=== PATIENT | female | born 1965 | race Caucasian/White ===

== ENCOUNTER 2022-04-05 19:33 | Inpatient (IN) | payer OTHER, SELFPAY ==
--- NOTE | ~2022-04-05 | US_ITS ---
EXAMINATION: US renal BI DATE: 04/06/2022 17:13 INDICATION: Acute renal insufficiency. Nonobstructing renal stone. TECHNIQUE: Multiple ultrasound grayscale images of the kidneys were obtained. COMPARISON: CT abdomen and pelvis dated 04/06/2022 FINDINGS: The right kidney measures 12.1 x 7.1 x 6.2 cm. The left kidney measures 11.9 x 5.4 x 6.2 cm. Retained lobulations of both kidneys with normal echogenicity. 3 mm nonobstructing stone at the mid rig ht kidney. There is no hydronephrosis in either kidney. Review of prior CT suggests a potentially co mplex cystic lesion at the upper pole of the right kidney which is not clearly visualized on the prov ided images. The bladder is normal. IMPRESSION: 1. 3 mm nonobstructing right renal stone with no hydronephrosis. 2. Subtle complex cystic-appearing lesion suggestive of both the right kidney on prior CT but not def initively identified on the current study. Would recommend further evaluation with pre and postcontra st MRI or CT. Reviewed, dictated and finalized at location A. GEMENT SERVICES TECHNICIAN IMPRESSION: 1. 3 mm nonobstructing right renal stone with no hydronephrosis. 2. Subtle complex cystic-appearing lesion suggestive of both the right kidney o n prior CT but not definitively identified on the current study. Would recommen d further evaluation with pre and postcontrast MRI or CT.
--- NOTE | ~2022-04-05 | CT_ITS ---
Non-contrast CT scan of the Abdomen and Pelvis Clinical indication: Abdominal pain Technique: 5 mm axial scans were obtained through the abdomen and pelvis without intravenous or oral contrast. Dose reduction technique was used on this scan by utilizing automated exposure control and iterative reconstruction technique. The dose-length product (DLP) was 1010.00 mGy-cm. Findings: Images through the lung bases reveal no abnormalities. Single small nonobstructing right renal stone noted. Left kidney unremarkable. No ureteral stone or h ydronephrosis on either side. The liver, spleen, pancreas, and adrenals appear normal. Cholecystectomy clips are present. There is no aortic aneurysm. There is no evidence of bowel obstruction. Images through the pelvis were performed. There is no evidence of ascites or lymphadenopathy. Urinary bladder unremarkable. Patient is post hysterectomy. No pelvic mass seen. Impression: 2 mm nonobstructing right renal stone. No other significant findings. Reviewed, dictated and finalized at [facility]. ULSION ENGINEER Impression: 2 mm nonobstructing right renal stone. No other significant findings.
--- NOTE | ~2022-04-05 | XR_ITS ---
Clinical Indication: Sepsis PA and lateral views of the chest: Comparison: None Findings: The lungs are clear, without evidence of focal consolidation or pleural effusion. Cardiome diastinal silhouette is within normal limits. Bones and soft tissues are unremarkable. Impression: Normal chest. Reviewed, dictated and finalized at [facility]. PHERE PORTAL ARCHITECT Impression: Normal chest.
[2022-04-05 19:35] VITALS: BP 125/77; PULSE 93; RESP 20; TEMP 36.8; O2SAT 100
[2022-04-06] VITALS (25 sets, daily range): BP systolic 97–172; BP diastolic 50–94; PULSE 84–96; RESP 9–21; TEMP 36.1–36.7; O2SAT 86–100; BMI 33.0
--- NOTE | 2022-04-06 00:44 | ED.ABDPAIN ---
HPI - Abdominal Pain General Chief Complaint: Abdominal Pain <Coco Lyon PA-C - Last Filed: 04/06/22 13:25> Stated Complaint: abd pain <Coco Lyon PA-C - Last Filed: 04/06/22 13:25> Time Seen by Provider: 04/06/22 00:37 <Coco Lyon PA-C - Last Filed: 04/06/22 13:25> History of Present Illness HPI narrative: 56-year-old female with a history of diabetes, cholecystitis s/p cholecystectomy here via EMS for evaluation of abdominal pain over the past week. He is in nature, not located in 1 specific spot. Describes it as sharp and cramping. patient states that the pain has made it so she has been unable to eat for the past week. Reports nausea but no vomiting. No diarrhea or constipation, fevers or chills, new or suspicious foods. She states a similar episode happened back in January for which she saw her primary care doctor, has not had images or labs done but did state that resolved without intervention at that time. This week's episode is worse. She is from out of town. <Coco Lyon PA-C - Last Filed: 04/06/22 13:25> Related Data Home Medications: Home Medications Medication Instructions Recorded Confirmed amlodipine 10 mg tablet 10 mg PO DAILY 04/06/22 04/06/22 atorvastatin 10 mg tablet 10 mg PO DAILY 04/06/22 04/06/22 benztropine 0.5 mg tablet 0.5 mg PO DAILY 04/06/22 04/06/22 duloxetine 60 mg capsule,delayed 120 mg PO DAILY 04/06/22 04/06/22 release (Cymbalta) empagliflozin 25 mg tablet 25 mg PO DAILY 04/06/22 04/06/22 (Jardiance) ezetimibe 10 mg tablet 10 mg PO DAILY 04/06/22 04/06/22 glipizide 5 mg tablet 5 mg PO DAILY 04/06/22 04/06/22 hydrochlorothiazide 12.5 mg capsule 12.5 mg PO DAILY 04/06/22 04/06/22 hydroxyzine HCl 50 mg tablet 50 mg PO QID PRN Anxiety 04/06/22 04/06/22 irbesartan 300 1 tablet PO DAILY 04/06/22 04/06/22 mg-hydrochlorothiazide 12.5 mg tablet levothyroxine 200 mcg tablet 200 mcg PO DAILY 04/06/22 04/06/22 tizanidine 4 mg capsule 4 mg PO QID PRN Muscle Spasm 04/06/22 04/06/22 <Coco Lyon PA-C - Last Filed: 04/06/22 13:25> Allergies/Adverse Reactions: Allergies Allergy/AdvReac Type Severity Reaction Status Date / Time Penicillins Allergy Hives Verified 04/05/22 19:40 <JINA Sanford Last Filed: 04/06/22 13:25> Review of Systems Review of Systems: Gen: Denies fevers or chills Eyes: Denies eye pain or visual change ENT: Denies congestion Respiratory: Denies shortness of breath or cough CV: Denies chest pain or palpitations GI: Reports abdominal pain and nausea : denies burning, urgency, frequency or hematuria Musculoskeletal: Denies back pain or muscle pain Neuro: Denies numbness, tingling, weakness or focal weakness Skin: Denies rash Except as documented, all other systems reviewed and negative <JINA Sanford Last Filed: 04/06/22 13:25> [facility] Family History Family History: Family History Other Cerebrovascular accident Mother Hypertension <JINA Sanford Last Filed: 04/06/22 13:25> Social History Social History: Social History Smoking status: Former smoker Alcohol intake: never Substance use: never Lack of Transportation: No Lack of Food: Never True Current Housing: I Have Housing Concerned About Future Housing: No Difficulty Paying Gas/Electric Bills: No Difficulty Paying for Meds: No Currently Unemployed: No Education: Associate Degree Difficulty w/ Childcare or Family Care: No Spiritual care concerns: No <JINA Sanford Last Filed: 04/06/22 13:25> Exam Narrative: APPEARANCE: disheveled, non-toxic in appearance, flat affect Head: Normocephalic and atraumatic. EYES: PERRLA/EOMI, conjunctivae clear NOSE: No nasal drainage EARS: External ear normal in appearan
[2022-04-06] MEDS: SODIUM CHLORIDE 0.9% IV 1,000 ML 999 ML IV CONT ×3 (01:08→03:41)
[2022-04-06] MEDS: FAMOTIDINE 20 MG/2 ML VIAL IV PUSH (01:08)
[2022-04-06] MEDS: PROCHLORPERAZINE EDISYLATE 10 MG/2 ML VIAL IV PUSH (01:22)
[2022-04-06 01:27] LABS: Hematocrit 33.7 % (37.0-47.0); Hemoglobin 11.3 g/dL (12.0-15.0); Mean Corpuscular HGB Conc 33.5 g/dl (32-36); Mean Corpuscular Hemoglobin 27.6 pg (26-34); Mean Corpuscular Volume 82.4 fl (80-100); Mean Platelet Volume 8.9 fl (7.4-10.4); Platelet Count Result 650 k/mm3 (150-375); Red Blood Count 4.09 M/mm3 (4.2-5.4); Red Cell Distribution Width 14.6 % (11.5-14.5)
[2022-04-06 01:49] LABS: Alanine Aminotransferase 26 U/L (6-35); Albumin Level 3.8 g/dL (3.5-5.1); Alkaline Phosphatase 708 U/L (38-126); Anion Gap 20 mmol/L (8-16); Aspartate Amino Transferase 24 U/L (14-36); Bilirubin,Total 1.5 mg/dL (0.2-1.3); Blood Urea Nitrogen 105 mg/dL (7-17); Calcium 9.5 mg/dL (8.4-10.2); Carbon Dioxide 19 mmol/L (22-30); Chloride 88 mmol/L (98-107); Estimated CRCL calculation 17 ml/min; Estimated Glomerular Filt Rate 12; Glucose 310 mg/dL (65-110); Lipase 28 U/L (23-300); Potassium 3.2 mmol/L (3.4-5.0); Sodium 127 mmol/L (137-145)
--- NOTE | 2022-04-06 01:55 | ECG_ITS ---
Measurements Intervals [place] Rate: 82 P: 35 ID: 175 QRS: -18 QRSD: 104 T: 71 QT: 370 QTc: 433 Interpretive Statements SINUS RHYTHM POSSIBLE LEFT ATRIAL ENLARGEMENT [-0.1mV P-WAVE IN V1/V2] LEFT VENTRICULAR HYPERTROPHY AND ST-T CHANGE [VOLTAGE CRITERIA PLUS ST/T ABNORMALITY] ABNORMAL ECG NO PREVIOUS ECG AVAILABLE FOR COMPARISON Electronically Signed On 04-06-2022 13:08:36 INDEPENDENT LIVING INSTRUCTOR by Can Calloway M.D.
[2022-04-06] MEDS: KCL 20 MEQ/SW 100 ML 100 ML 50 MEQ IVPB (02:11)
[2022-04-06 02:27] LABS: Anisocytosis 1+ (NORMAL); Band Neutrophils Percent 5 % (0-6); Giant Platelets Present; Large Platelets Present; Lymphocytes Absolute Manual 2.61 K/mm3 (1.1-4.5); Macrocytosis 1+ (NORMAL); Microcytosis 1+ (NORMAL); Monocytes Absolute Manual 1.16 K/mm3 (0.1-0.90); Monocytes Percent Manual 4 % (3-9); Neutrophils Absolute Manual 25.23 K/mm3 (1.7-7.2); Neutrophils Percent Manual 82 % (46-73); Platelet Estimate Increased (Adequate); Rouleaux 1+ (NORMAL); Schistocytes None Seen (NORMAL); Total Cells Counted 100
[2022-04-06 02:55] LABS: Fractional Inspired Oxygen 21 %; HCO3 VBG 19.2 mEq/l (24.0-30.0); PCO2 VBG 34.5 mmHg (42.0-48.0); PO2 VBG 37.7 mmHg (35.0-45.0); pH VBG 7.363 (7.300-7.400)
[2022-04-06] MEDS: metroNIDAZOLE 500 MG/ISO 100ML 500 MG/100 ML BAG 100 MG IVPB (03:01)
[2022-04-06 03:36] LABS: Lactic Acid Reflex 1.2 mmol/L (0.7-2.0)
[2022-04-06 03:37] LABS: Magnesium 2.9 mg/dL (1.6-2.3); Phosphorus 9.6 mg/dL (2.5-4.5)
[2022-04-06 03:41] LABS: Appearance Urine Cloudy (Clear); Bilirubin Urine 1+ (Negative); Blood Urine 2+ (Negative); Color Urine Yellow (Yellow); Glucose Urine UA 2+ mg/dL (Negative); Ketones Urine Negative (Negative); Leukocyte Esterase Ur 1+ LEU/UL (Negative); Nitrate Urine Negative (Negative); Protein Urine 2+ mg/dL (Negative); Urobilinogen Urine 0.2 mg/dL (<2.0); pH Urine 5.5 (5.0-9.0)
[2022-04-06 03:58] LABS: Bacteria Urine 1+ /hpf; Mucus Urine Rare /lpf; Squamous Epithelial Cell Urine Many /hpf (Few); WBC Urine >75 /hpf
[2022-04-06 04:04] LABS: Troponin I < 0.012 ng/mL (0.000-0.034)
[2022-04-06 04:05] LABS: Add Urine Microscopic? YES
[2022-04-06 04:09] LABS: Beta-Hydroxybutyrate/Acetoacetate 0.69 mmol/L (0.02-0.27)
[2022-04-06 04:21] LABS: Influenza A QL RT-PCR Negative (Negative); Influenza B QL RT-PCR Negative (Negative); SARS-CoV-2 RNA PCR Positive
--- NOTE | 2022-04-06 06:28 | ADMGEN ---
This patient, Mariza Sparks, was admitted to Medical Room 250-01. Patient/family oriented to hospital policies and general routines including ID bracelet, bed and alarms, visiting hours, pain management, procedures, bathroom and other care routines, personal items, smoking policy, room service/diet, and visiting hours. Information on how to activate the Rapid Response Team has been discussed. Patient/Family are encouraged to report perceived risks to care and to ask questions if they do not understand what they are told or what they should do.
[2022-04-06] MEDS: SODIUM CHLORIDE 0.9% IV 1,000 ML 125 ML IV CONT ×2 (06:54→16:32)
[2022-04-06 09:01] LABS: Glucose Point of Care 165 mg/dl (65-105)
[2022-04-06 09:04] LABS: Anion Gap 15 mmol/L (8-16); Blood Urea Nitrogen 90 mg/dL (7-17); Carbon Dioxide 18 mmol/L (22-30); Chloride 95 mmol/L (98-107); Estimated CRCL calculation 20 ml/min; Estimated Glomerular Filt Rate 15; Glucose 181 mg/dL (65-110); Potassium 2.8 mmol/L (3.4-5.0); Sodium 128 mmol/L (137-145)
[2022-04-06 09:26] LABS: Creatine Kinase 79 U/L (30-135); Lactate Dehydrogenase 213 U/L (120-246)
[2022-04-06] MEDS: DULoxetine HCL 60 MG CAPSULE.DR 120 MG PO (09:30)
[2022-04-06] MEDS: BENZTROPINE MESYLATE 0.5 MG TABLET PO (09:30)
[2022-04-06] MEDS: amLODIPine BESYLATE 5 MG TABLET 10 MG PO (09:30)
[2022-04-06] MEDS: LEVOTHYROXINE SODIUM 100 MCG TABLET 200 MCG PO (09:30)
[2022-04-06] MEDS: ATORVASTATIN 10 MG TABLET PO (09:30)
[2022-04-06] MEDS: EZETIMIBE 10 MG TABLET PO (09:30)
[2022-04-06 09:54] LABS: Procalcitonin 1.8 ng/mL
[2022-04-06 10:39] LABS: Toxigenic C. Diff NEGATIVE (NEGATIVE)
--- NOTE | 2022-04-06 11:06 | PM.IMHP ---
H&P: HPI History of Present Illness Date/Time: 04/06/22 11:06 Chief Complaint: 56-year-old female with a history of diabetes, cholecystitis s/p cholecystectomy here via EMS for evaluation of abdominal pain over the past week.? He is in nature, not located in 1 specific spot.? Describes it as sharp and cramping. patient states that the pain has made it so she has been unable to eat for the past week.? Reports nausea but no vomiting.? No diarrhea or constipation, fevers or chills, new or suspicious foods.? She states a similar episode happened back in January for which she saw her primary care doctor, has not had images or labs done but did state that resolved without intervention at that time.? This week's episode is worse.? She is from out of town [facility] Family History Family History Other Cerebrovascular accident Mother Hypertension Social History Social History Smoking status: Former smoker Alcohol intake: never Substance use: never Lack of Transportation: No Lack of Food: Never True Current Housing: I Have Housing Concerned About Future Housing: No Difficulty Paying Gas/Electric Bills: No Difficulty Paying for Meds: No Currently Unemployed: No Education: Associate Degree Difficulty w/ Childcare or Family Care: No Spiritual care concerns: No Meds Home Medications and Allergies Home Medications Medication Instructions Recorded Confirmed Type amlodipine 10 mg tablet 10 mg PO DAILY 04/06/22 04/06/22 History atorvastatin 10 mg tablet 10 mg PO DAILY 04/06/22 04/06/22 History benztropine 0.5 mg tablet 0.5 mg PO DAILY 04/06/22 04/06/22 History duloxetine 60 mg capsule,delayed 120 mg PO DAILY 04/06/22 04/06/22 History release (Cymbalta) empagliflozin 25 mg tablet 25 mg PO DAILY 04/06/22 04/06/22 History (Jardiance) ezetimibe 10 mg tablet 10 mg PO DAILY 04/06/22 04/06/22 History glipizide 5 mg tablet 5 mg PO DAILY 04/06/22 04/06/22 History hydrochlorothiazide 12.5 mg capsule 12.5 mg PO DAILY 04/06/22 04/06/22 History hydroxyzine HCl 50 mg tablet 50 mg PO QID PRN Anxiety 04/06/22 04/06/22 History irbesartan 300 1 tablet PO DAILY 04/06/22 04/06/22 History mg-hydrochlorothiazide 12.5 mg tablet levothyroxine 200 mcg tablet 200 mcg PO DAILY 04/06/22 04/06/22 History tizanidine 4 mg capsule 4 mg PO QID PRN Muscle Spasm 04/06/22 04/06/22 History Allergies Allergy/AdvReac Type Severity Reaction Status Date / Time Penicillins Allergy Hives Verified 04/05/22 19:40 Vital Signs Vital Signs - 24 hr 04/05/22 19:35 04/06/22 00:58 04/06/22 00:59 Temperature 98.2 F Pulse Rate 93 Respiratory Rate 20 Blood Pressure 125/77 136/91 H Pulse Oximetry 100 98 96 Oxygen Delivery Room Air 04/06/22 01:01 04/06/22 01:03 04/06/22 01:15 Temperature Pulse Rate Respiratory Rate Blood Pressure 135/91 H Pulse Oximetry 98 97 Oxygen Delivery 04/06/22 01:17 04/06/22 01:30 04/06/22 01:31 Temperature Pulse Rate Respiratory Rate Blood Pressure 97/50 L 130/80 Pulse Oximetry 96 94 94 Oxygen Delivery 04/06/22 01:45 04/06/22 01:47 04/06/22 02:00 Temperature Pulse Rate Respiratory Rate Blood Pressure 136/73 Pulse Oximetry 97 86 L 95 Oxygen Delivery 04/06/22 02:01 04/06/22 02:15 04/06/22 02:31 Temperature Pulse Rate Respiratory Rate Blood Pressure 130/68 Pulse Oximetry 99 99 100 Oxygen Delivery 04/06/22 02:55 04/06/22 03:00 04/06/22 03:03 Temperature Pulse Rate 84 Respiratory Rate 14 Blood Pressure 159/73 H Pulse Oximetry 100 100 100 Oxygen Delivery 04/06/22 03:15 04/06/22 03:16 04/06/22 06:20 Temperature 97.6 F Pulse Rate 93 90 93 Respiratory Rate 15 9 L 20 Blood Pressure 171/82 H 172/85 H Pulse Oximetry 100 100 98 Oxygen Delivery 04/06/22 10:40 Temperature 97.5 F
--- NOTE | 2022-04-06 11:27 | PM.CNNEP ---
Assessment and Plan Assessment and plan (1) Acute kidney injury: Code(s): N17.9 - Acute kidney failure, unspecified Status: Acute Assessment and Plan: unclear what baseline creatinine is... however, patient reports that her BUN and creatinine are always a little high which argues possible underlying CKD/renal insufficiency will try to get records from PCP etiology of RAF (?) -- volume depletion versus UTI versus other... possibly worsened by ARB and thiazide diuretic use CT of abdomen noted check urine electrolytes, eosinophils and CPK trial of IVFs follow repeat labs and UOP (2) UTI (urinary tract infection): Code(s): N39.0 - Urinary tract infection, site not specified Status: Acute Assessment and Plan: as suggested by admission UA follow-up on culture data on IV antibiotics (3) Abdominal pain: Code(s): R10.9 - Unspecified abdominal pain Status: Acute Assessment and Plan: related to #1 (?) CT of abd/pelvis with no acute pathology supportive therapy (4) Hypertension: Code(s): I10 - Essential (primary) hypertension Status: Chronic Assessment and Plan: reasonable control at this time follow trend of hemodynamics (5) Diabetes: Code(s): E11.9 - Type 2 diabetes mellitus without complications Status: Chronic Assessment and Plan: follow accuchecks glycemic control per hospitalists Will continue to follow. History of Present Illness Reason for Consult Consult date: 04/06/22 Reason for consult: acute renal failure Chief Complaint Chief complaint: RAF, UTI History of Present Illness Narrative: The patient is a 56-year-old female with a past medical history as outlined below who presented to [facility] Emergency room for further evaluation abdominal pain. The patient states that she has had abdominal pain for the last week which appears to be generalized in nature and in no specific spot. She describes the abdominal pain is sharp and cramping sensation with the associated symptom of poor oral intake with nausea but no overt vomiting. She denies any other GI symptoms, fevers, chills, new medications or change in recent food habits. She reports she has had a similar episode a few months ago but it seemed to resolve on its own. Given the persistent nature of the symptoms this time around, she came to the ER for further assessment. Workup and evaluation in the emergency room demonstrated the patient to be hemodynamically stable and routine blood tests were significant for a markedly elevated BUN and creatinine as well as a UA that was somewhat consistent/suggestive of urinary tract infection. CT imaging of her abdomen did not show any acute pathology or any anatomical issues with regard to her kidney either. Given these findings, appropriate cultures were obtained and she was started on antibiotic therapy as well as IV fluids with subsequent admission to the hospital for further evaluation and therapy. Renal consultation was requested due to her presumed acute kidney injury/acute renal failure. The patient currently resides out of town so I have no previous baseline labs a compare to. However, on further questioning with the patient, she does report that her primary care physician is always told her that her BUN and creatinine are always on the higher side of normal but she has never been referred to or seen a field service supervisor with regard to this issue. Apparently, her PCP has been monitoring this issue/problem but unfortunately, the details of how elevated her BUN and creatinine normally run are not entirely clear to me at this time. Currently, at the time of my visit, she appears to be in no acute distress. Review of Systems Review of Systems: As per HPI. [facility] Family History Family History Other Cerebrovascular accident Mother
[2022-04-06 12:24] LABS: Glucose Point of Care 195 mg/dl (65-105)
[2022-04-06 13:49] LABS: Creatinine Urine 20.3 mg/dL; Sodium Urine Random 68 meq/L; Total Protein Urine Random 38 mg/dL; Ur Ttl Prot Creatinine Ratio 1.87 mg/mg (0-0.20); Urea Random Urine 324 MG/DL
[2022-04-06 14:21] LABS: Eosinophil Urine None Seen % (None Seen)
[2022-04-06] MEDS: POTASSIUM CHLORIDE 20 MEQ PACKET (FOR LIQUID) PO (14:22)
[2022-04-06 14:46] LABS: Urine Eos QC 2nd Tech Confirmed
--- NOTE | 2022-04-06 16:19 | PC.NURSE ---
Attempted to obtain medical records from PCP. Was unable to obtain correct fax number from facility. Attempted to call PCP office again and they were closed.
[2022-04-06] MEDS: LOPERAMIDE HCL 2 MG CAPSULE PO ×2 (16:56→21:21)
[2022-04-06] MEDS: SIMETHICONE 80 MG TAB.CHEW PO (16:56)
[2022-04-06] MEDS: INSULIN ASPART (*BKC) 100 UNITS/ML SUB-Q (17:00)
[2022-04-06 17:03] LABS: Glucose Point of Care 355 mg/dl (65-105)
[2022-04-06 20:29] LABS: Glucose Point of Care 230 mg/dl (65-105)
[2022-04-06] MEDS: TIZANIDINE HCL 4 MG TABLET PO (21:21)
[2022-04-07] MEDS: SODIUM CHLORIDE 0.9% IV 1,000 ML 125 ML IV CONT (00:28)
[2022-04-07 05:54] LABS: Basophils Absolute Auto 0.1 K/mm3 (0.0-0.1); Basophils Percent Auto 0.5 % (0.2-1.2); Eosinophils Absolute Auto 0.1 K/mm3 (0-0.3); Eosinophils Percent Auto 0.3 % (0-4.4); Hematocrit 29.7 % (37.0-47.0); Hemoglobin 9.8 g/dL (12.0-15.0); Immature Granulocyte Absolute 0.65 K/mm3 (0.00-0.031); Immature Granulocyte Percent A 2.9 % (0-0.5); Lymphocytes Absolute Auto 1.66 K/mm3 (0.9-3.2); Lymphocytes Percent Auto 7.4 % (18.3-44.2); Mean Corpuscular Hemoglobin 27.7 pg (26-34); Mean Corpuscular Volume 83.9 fl (80-100); Mean Platelet Volume 8.6 fl (7.4-10.4); Monocytes Absolute Auto 0.8 K/mm3 (0.1-0.6); Monocytes Percent Auto 3.4 % (2.6-8.5); Neutrophils Absolute Auto 19.1 K/mm3 (1.3-6.7); Neutrophils Percent Auto 85.5 % (45.5-73.1); Platelet Count Result 469 k/mm3 (150-375); Red Blood Count 3.54 M/mm3 (4.2-5.4); Red Cell Distribution Width 14.6 % (11.5-14.5); White Blood Count 22.4 K/mm3 (4.5-10.0)
[2022-04-07 06:00] VITALS: BP 142/70; PULSE 97; RESP 20; TEMP 36.2; O2SAT 98
[2022-04-07] MEDS: LEVOTHYROXINE SODIUM 100 MCG TABLET 200 MCG PO (06:12)
[2022-04-07 06:16] LABS: Anion Gap 11 mmol/L (8-16); Blood Urea Nitrogen 70 mg/dL (7-17); Calcium 8.5 mg/dL (8.4-10.2); Carbon Dioxide 21 mmol/L (22-30); Chloride 104 mmol/L (98-107); Creatine Kinase 22 U/L (30-135); Estimated CRCL calculation 25 ml/min; Estimated Glomerular Filt Rate 20; Glucose 157 mg/dL (65-110); Potassium 3.1 mmol/L (3.4-5.0); Sodium 136 mmol/L (137-145)
[2022-04-07 06:53] LABS: Thyroid Stimulating Hormone Reflex 0.101 uIU/mL (0.465-4.68)
[2022-04-07 08:10] VITALS: O2SAT 98
[2022-04-07 08:29] LABS: Free T4 Free Thyroxine Reflex 1.43 ng/dL (0.78-2.19)
[2022-04-07] MEDS: SODIUM CHLORIDE 0.9% IV 1,000 ML 75 ML IV CONT (08:34)
[2022-04-07] MEDS: BENZTROPINE MESYLATE 0.5 MG TABLET PO (08:41)
[2022-04-07] MEDS: amLODIPine BESYLATE 5 MG TABLET 10 MG PO (08:41)
[2022-04-07] MEDS: ATORVASTATIN 10 MG TABLET PO (08:41)
[2022-04-07] MEDS: EZETIMIBE 10 MG TABLET PO (08:42)
[2022-04-07] MEDS: DULoxetine HCL 60 MG CAPSULE.DR 120 MG PO (08:43)
--- NOTE | 2022-04-07 08:52 | P.PNNP_ITS ---
Progress Note: A&P Assessment and Plan (1) Acute kidney injury: Code(s): N17.9 - Acute kidney failure, unspecified Status: Acute Assessment and Plan: * unclear what baseline creatinine is... * however, patient reports that her BUN and creatinine are always a little high which argues possible underlying CKD/renal insufficiency * Await records from PCP. * Kidney size is normal on ultrasound. * Renal ultrasound shows a complex cyst and a kidney stone but otherwise unremarkable. * UA shows UTI. She also has peripheral leukocytosis which is improved today. * Urine electrolytes are non pre renal. Fractional excretion of urea is not low. * CK is normal. * Etiology of RAF is not entirely clear. However I suspect that this is related to her COVID, UTI and bacteremia. * She is getting antibiotics. Her white counts better. She feels better. * possibly worsened by ARB and thiazide diuretic use * CT of abdomen noted * She is eating fairly well. Will decrease IV fluids. * She is getting antibiotics for the bacterial infection. * She has a an atypical renal cyst. She will need an MRI but this can wait until she is off isolation. (2) UTI (urinary tract infection): Code(s): N39.0 - Urinary tract infection, site not specified Status: Acute Assessment and Plan: * as suggested by admission UA * follow-up on culture data * on Levaquin IV (3) Abdominal pain: Code(s): R10.9 - Unspecified abdominal pain Status: Acute Assessment and Plan: * related to #1 (?) * CT of abd/pelvis with no acute pathology * supportive therapy * She is in less pain today. (4) Hypertension: Code(s): I10 - Essential (primary) hypertension Status: Chronic Assessment and Plan: * Systolic ranging from 130-150. * She is on amlodipine. (5) Diabetes: Code(s): E11.9 - Type 2 diabetes mellitus without complications Status: Chronic Assessment and Plan: * On Accu-Cheks and sliding-scale insulin. Subjective Date/time seen: 04/07/22 08:52 Interval history: Mariza is feeling better today. She is asking when she can go home. She has a little bit of a cough. No shortness of breath. Making plenty of urine. Eating fairly well but not great. Her appetite is not all that good. Review of Systems Cardiovascular: Cardiovascular: Reports no additional cardiovascular complaints Respiratory: Respiratory: Reports no additional respiratory complaints Gastrointestinal: Gastrointestinal: Reports no additional gastrointestinal complaints Genitourinary: Genitourinary: Reports no additional female genitourinary complaints Exam Narrative: WDWN in NAD skin no rash head ncat lungs clear cor reg no rub abd BS+ nontender and soft ext no edema. Objective Data Vital Signs Vital Signs: Vital Signs - 24 hr 04/06/22 10:40 04/06/22 09:30 04/06/22 14:30 Temperature 97.5 F L 97.6 F Pulse Rate 92 94 Respiratory Rate 18 18 Blood Pressure 145/77 H 138/94 H Pulse Oximetry 97 98 Oxygen Delivery Room Air 04/06/22 18:00 04/06/22 22:00 04/06/22 21:25 Temperature 98.1 F 97.0 F L Pulse Rate 91 96 Respiratory Rate 18 21 H Blood Pressure 131/68 151/82 H Pulse Oximetry 95 100 99
--- NOTE | 2022-04-07 08:52 | PM.PNNEP ---
Progress Note: A&P Assessment and Plan (1) Acute kidney injury: Code(s): N17.9 - Acute kidney failure, unspecified Status: Acute Assessment and Plan: unclear what baseline creatinine is... however, patient reports that her BUN and creatinine are always a little high which argues possible underlying CKD/renal insufficiency Await records from PCP. Kidney size is normal on ultrasound. Renal ultrasound shows a complex cyst and a kidney stone but otherwise unremarkable. UA shows UTI. She also has peripheral leukocytosis which is improved today. Urine electrolytes are non pre renal. Fractional excretion of urea is not low. CK is normal. Etiology of RAF is not entirely clear. However I suspect that this is related to her COVID, UTI and bacteremia. She is getting antibiotics. Her white counts better. She feels better. possibly worsened by ARB and thiazide diuretic use CT of abdomen noted She is eating fairly well. Will decrease IV fluids. She is getting antibiotics for the bacterial infection. She has a an atypical renal cyst. She will need an MRI but this can wait until she is off isolation. (2) UTI (urinary tract infection): Code(s): N39.0 - Urinary tract infection, site not specified Status: Acute Assessment and Plan: as suggested by admission UA follow-up on culture data on Levaquin IV (3) Abdominal pain: Code(s): R10.9 - Unspecified abdominal pain Status: Acute Assessment and Plan: related to #1 (?) CT of abd/pelvis with no acute pathology supportive therapy She is in less pain today. (4) Hypertension: Code(s): I10 - Essential (primary) hypertension Status: Chronic Assessment and Plan: Systolic ranging from 130-150. She is on amlodipine. (5) Diabetes: Code(s): E11.9 - Type 2 diabetes mellitus without complications Status: Chronic Assessment and Plan: On Accu-Cheks and sliding-scale insulin. Subjective Date/time seen: 04/07/22 08:52 Interval history: Mariza is feeling better today. She is asking when she can go home. She has a little bit of a cough. No shortness of breath. Making plenty of urine. Eating fairly well but not great. Her appetite is not all that good. Review of Systems Cardiovascular: Cardiovascular: Reports no additional cardiovascular complaints Respiratory: Respiratory: Reports no additional respiratory complaints Gastrointestinal: Gastrointestinal: Reports no additional gastrointestinal complaints Genitourinary: Genitourinary: Reports no additional female genitourinary complaints Exam Narrative: WDWN in NAD skin no rash head ncat lungs clear cor reg no rub abd BS+ nontender and soft ext no edema. Objective Data Vital Signs Vital Signs: Vital Signs - 24 hr 04/06/22 10:40 04/06/22 09:30 04/06/22 14:30 Temperature 97.5 F L 97.6 F Pulse Rate 92 94 Respiratory Rate 18 18 Blood Pressure 145/77 H 138/94 H Pulse Oximetry 97 98 Oxygen Delivery Room Air 04/06/22 18:00 04/06/22 22:00 04/06/22 21:25 Temperature 98.1 F 97.0 F L Pulse Rate 91 96 Respiratory Rate 18 21 H Blood Pressure 131/68 151/82 H Pulse Oximetry 95 100 99 Oxygen Delivery Room Air 04/07/22 06:00 04/07/22 08:10 Temperature 97.2 F L Pulse Rate 97 Respiratory Rate 20 Blood Pressure 142/70 H Pulse Oximetry 98 98 Oxygen Delivery Room Air Intake/Output Intake/Output: Intake & Output 04/04/22 04/05/22 04/06/22 04/07/22 23:59 23:59 23:59 23:59 Intake Total 5360 2700 Output Total 2050 1400 Balance 3310 1300 Meds/Results Medications: Active Medications Generic Name Dose Route Start Last Admin Trade Name Freq PRN Reason Stop Dose Admin Amlodipine Besylate 10 mg 04/06/22 09:00 04/07/22 08:41 Amlodipine Besylate 5 Mg Tablet PO 10 mg DAILY MIRACLE Administration Atorvastatin Calcium 10 mg 04/06/22 09:00 04/07/22
[2022-04-07 08:56] LABS: Glucose Point of Care 181 mg/dl (65-105)
[2022-04-07 10:00] VITALS: BP 144/88; PULSE 100; RESP 16; TEMP 36.7; O2SAT 97
--- NOTE | 2022-04-07 11:26 | PM.IMPN ---
Progress Note: A&P Assessment and Plan (1) Acute kidney injury: Code(s): N17.9 - Acute kidney failure, unspecified Status: Acute Assessment and Plan: IV fluids Nephrology consult (2) UTI (urinary tract infection): Code(s): N39.0 - Urinary tract infection, site not specified Status: Acute Assessment and Plan: IV antibiotics (3) Abdominal pain: Code(s): R10.9 - Unspecified abdominal pain Status: Acute Subjective Date/time seen: 04/07/22 11:26 Feeling better Exam Narrative: General: alert and oriented Psych: appropriate mood nad affect Eyes: PERRLA Neck: Trachea midline, no new lesions Skin: no changes Lungs: CTA Cardiac: Normal S1,S2, no MGR ABD: soft, nd, nt, nbs Ext: no new lesions, no cce Vasc: Pulses intact Objective Data Vital Signs Vital Signs: Vital Signs - 24 hr 04/06/22 14:30 04/06/22 18:00 04/06/22 22:00 Temperature 97.6 F 98.1 F 97.0 F L Pulse Rate 94 91 96 Respiratory Rate 18 18 21 H Blood Pressure 138/94 H 131/68 151/82 H Pulse Oximetry 98 95 100 Oxygen Delivery 04/06/22 21:25 04/07/22 06:00 04/07/22 08:10 Temperature 97.2 F L Pulse Rate 97 Respiratory Rate 20 Blood Pressure 142/70 H Pulse Oximetry 99 98 98 Oxygen Delivery Room Air Room Air 04/07/22 10:46 04/07/22 10:00 Temperature 98.1 F Pulse Rate 100 Respiratory Rate 16 Blood Pressure 144/88 H Pulse Oximetry 97 Oxygen Delivery Room Air Intake/Output Intake/Output: Intake & Output 04/04/22 04/05/22 04/06/22 04/07/22 23:59 23:59 23:59 23:59 Intake Total 5360 3060 Output Total 2050 1400 Balance 3310 1660 Meds/Results Medications: Active Medications Generic Name Dose Route Start Last Admin Trade Name Freq PRN Reason Stop Dose Admin Amlodipine Besylate 10 mg 04/06/22 09:00 04/07/22 08:41 Amlodipine Besylate 5 Mg Tablet PO 10 mg DAILY [facility] Administration Atorvastatin Calcium 10 mg 04/06/22 09:00 04/07/22 08:41 Atorvastatin 10 Mg Tablet PO 10 mg DAILY [facility] Administration Benztropine Mesylate 0.5 mg 04/06/22 09:00 04/07/22 08:41 Benztropine Mesylate 0.5 Mg Tablet PO 0.5 mg DAILY [facility] Administration Dextrose 12.5 gm 04/06/22 12:25 Dextrose 50% 25 Gm/50 Ml Syringe IV PUSH PRN PRN Hypoglycemia Protocol Duloxetine HCl 120 mg 04/06/22 09:00 04/07/22 08:43 Duloxetine Hcl 60 Mg Capsule.Dr PO 120 mg DAILY [facility] Administration Ezetimibe 10 mg 04/06/22 09:00 04/07/22 08:42 Ezetimibe 10 Mg Tablet PO 10 mg DAILY [facility] Administration Glucagon 1 mg 04/06/22 12:25 Glucagon For Inj 1 Mg Vial IM PRN PRN Hypoglycemia Protocol Glucose 15 gm 04/06/22 12:25 Glucose Oral Gel 15 Gm Of Glucse In 37.5 Gm Tube PO PRN PRN Hypoglycemia Protocol Hydroxyzine HCl 50 mg 04/06/22 08:43 Hydroxyzine Hcl 25 Mg Tablet PO QID PRN Anxiety Sodium Chloride 1,000 mls @ 50 mls/hr 04/06/22 05:15 04/07/22 09:31 Normal Saline Iv IV CONT 50 mls/hr .Q20H [facility] Infusion Levofloxacin/Dextrose 750 mg in 150 mls @ 100 mls/hr 04/08/22 09:00 Levaquin 750 Mg/D5w 150 Ml IVPB Q48HR [facility] Dextrose 1,000 mls @ 100 mls/hr 04/06/22 12:25 Dextrose 5% 1,000 Ml IVPB PRN PRN Hypoglycemia Protocol Insulin Aspart 2 - 5 units 04/06/22 17:00 04/07/22 08:39 Insulin Aspart (*Bkc) 100 Units/Ml SUB-Q Not Given TIDWM [facility] Protocol Levothyroxine Sodium 200 mcg 04/06/22 06:30 04/07/22 06:12 Levothyroxine Sodium 100 Mcg Tablet PO 200 mcg DAILY@0630 [facility] Administration Loperamide HCl 2 mg 04/06/22 16:37 04/06/22 21:21 Loperamide Hcl 2 Mg Capsule PO 2 mg PRN PRN Administration Diarrhea Simethicone 80 mg 04/06/22 16:37 04/06/22 16:56 Simethicone 80 Mg Tab.Chew PO 80 mg QID PRN Administration Gas Discomfort Tizanidine HCl 4 mg 04/06/22 08:43 04/06/22 21:21 Tizanidin
[2022-04-07] MEDS: LACTATED RINGERS 1,000 ML 75 ML IV CONT ×2 (11:47→21:05)
[2022-04-07 12:30] LABS: Glucose Point of Care 260 mg/dl (65-105)
[2022-04-07 12:43] LABS: Total Triiodothyronine (T3) 0.54 NG/ML (0.97-1.69)
[2022-04-07] MEDS: INSULIN ASPART (*BKC) 100 UNITS/ML SUB-Q (12:44)
[2022-04-07 15:18] VITALS: BP 125/73; PULSE 98; RESP 16; TEMP 36.9; O2SAT 97
[2022-04-07 17:25] LABS: Glucose Point of Care 181 mg/dl (65-105)
[2022-04-07 18:49] VITALS: BP 134/68; PULSE 100; RESP 18; TEMP 36.6; O2SAT 96
[2022-04-07] MEDS: TIZANIDINE HCL 4 MG TABLET PO (21:04)
[2022-04-07 22:21] VITALS: BP 147/77; PULSE 99; RESP 18; TEMP 36.3; O2SAT 95
[2022-04-07 22:43] LABS: Glucose Point of Care 282 mg/dl (65-105)
[2022-04-08] VITALS (7 sets, daily range): BP systolic 138–163; BP diastolic 58–89; PULSE 87–116; RESP 16–20; TEMP 36.3–37.1; O2SAT 96–100
[2022-04-08] MEDS: POTASSIUM CHLORIDE 20 MEQ TABLET PO (01:42)
[2022-04-08 05:39] LABS: Hematocrit 30.3 % (37.0-47.0); Hemoglobin 9.7 g/dL (12.0-15.0); Mean Corpuscular Hemoglobin 27.3 pg (26-34); Mean Corpuscular Volume 85.4 fl (80-100); Mean Platelet Volume 8.8 fl (7.4-10.4); Platelet Count Result 459 k/mm3 (150-375); Red Blood Count 3.55 M/mm3 (4.2-5.4); Red Cell Distribution Width 14.5 % (11.5-14.5); White Blood Count 21.7 K/mm3 (4.5-10.0)
[2022-04-08 06:02] LABS: Albumin Level 3.3 g/dL (3.5-5.1); Anion Gap 9 mmol/L (8-16); Blood Urea Nitrogen 52 mg/dL (7-17); Calcium 8.4 mg/dL (8.4-10.2); Carbon Dioxide 21 mmol/L (22-30); Chloride 102 mmol/L (98-107); Estimated CRCL calculation 31 ml/min; Estimated Glomerular Filt Rate 26; Glucose 223 mg/dL (65-110); Phosphorus 2.8 mg/dL (2.5-4.5); Potassium 2.9 mmol/L (3.4-5.0); Sodium 132 mmol/L (137-145)
--- NOTE | 2022-04-08 06:23 | PC.NURSE ---
Noticed on shift that K+ from am 04/07/22 was 3.1 with no correction. Notified Marlene BELL. Received order for 20meq KCL po x1 which was given. Lab draw this am 04/08/22 K+ level 2.9 Dr. Baez notified. Received order for K rider 40meq - put into the system
[2022-04-08] MEDS: LEVOTHYROXINE SODIUM 100 MCG TABLET 200 MCG PO (06:31)
[2022-04-08] MEDS: POTASSIUM CHLORIDE INJ 40 MEQ in SODIUM CHLORIDE 0.9% IV 500 ML 130 MEQ IVPB (06:49)
[2022-04-08 08:10] LABS: Glucose Point of Care 217 mg/dl (65-105)
--- NOTE | 2022-04-08 08:44 | P.PNNP_ITS ---
Progress Note: A&P Assessment and Plan (1) Acute kidney injury: Code(s): N17.9 - Acute kidney failure, unspecified Status: Acute Assessment and Plan: * unclear what baseline creatinine is... * she does not see a casino attendant but her PCP has mentioned that her creatinine is not normal. * she is a nurse. * Await records from PCP. * Kidney size is normal on ultrasound. * Renal ultrasound shows a complex cyst and a kidney stone but otherwise unremarkable. * UA shows UTI. She also has peripheral leukocytosis. her wbc is still above 20 but is slowly coming down. * Urine electrolytes are non pre renal. Fractional excretion of urea is not low. * CK is normal. * Etiology of RAF is not entirely clear. However I suspect that this is related to her COVID, UTI and bacteremia. she was on diuretics and arb POA * She is getting antibiotics. Her white count is slowly better. She feels better. * CT of abdomen noted * She is more hungry today. * if she eats more today then we can probably stop the IVFs. * continue ATBs. * She has a an atypical renal cyst. She will need an MRI but this can wait until she is off isolation. (2) UTI (urinary tract infection): Code(s): N39.0 - Urinary tract infection, site not specified Status: Acute Assessment and Plan: * as suggested by admission UA * UA and one of two blood cultures pos for E coli. * off Jardiance. * wbc not coming down very quickly. * Repeat UA today to be sure wbcs are clearing. * do we need more investigation? the patient does feel much better. * on Levaquin IV (3) Abdominal pain: Code(s): R10.9 - Unspecified abdominal pain Status: Acute Assessment and Plan: * related to #1 (?) * CT of abd/pelvis with no acute pathology * supportive therapy * She is in less pain today. (4) Hypertension: Code(s): I10 - Essential (primary) hypertension Status: Chronic Assessment and Plan: * Systolic ranging from 130-150. * She is on amlodipine. ARB on hold due to RAF (5) Diabetes: Code(s): E11.9 - Type 2 diabetes mellitus without complications Status: Chronic Assessment and Plan: * On Accu-Cheks and sliding-scale insulin. * off Jardiance (6) Hypokalemia: Code(s): E87.6 - Hypokalemia Status: Acute Plan K low today she is not on any diuretics and is on LR which contains some potassium. she received a supplement. Subjective Date/time seen: 04/08/22 08:44 Interval history: Mariza is feeling better today. her appetite is better She has a little bit of a cough. Exam Narrative: WDWN in NAD skin no rash or sq nodules head ncat lungs clear cor reg no rub or gallop abd BS+ nontender and soft ext no edema. Objective Data Vital Signs Vital Signs: Vital Signs - 24 hr 04/07/22 10:46 04/07/22 10:00 04/07/22 15:18 Temperature 98.1 F 98.4 F Pulse Rate 100 98 Respiratory Rate 16 16 Blood Pressure 144/88 H 125/73 Pulse Oximetry 97 97 Oxygen Delivery Room Air 04/07/22 18:49 04/07/22 22:21 04/08/22 02:14 Temperature 97.9 F 97.4 F L 97.4 F L Pulse Rate 100 99 87 Respiratory Rate 18 18 18 Blood Pressure 134/68 147/77 H 138/70 Pulse Oximetry 96 95 97 Oxygen Delivery
--- NOTE | 2022-04-08 08:44 | PM.PNNEP ---
Progress Note: A&P Assessment and Plan (1) Acute kidney injury: Code(s): N17.9 - Acute kidney failure, unspecified Status: Acute Assessment and Plan: unclear what baseline creatinine is... she does not see a undercover agent but her PCP has mentioned that her creatinine is not normal. she is a nurse. Await records from PCP. Kidney size is normal on ultrasound. Renal ultrasound shows a complex cyst and a kidney stone but otherwise unremarkable. UA shows UTI. She also has peripheral leukocytosis. her wbc is still above 20 but is slowly coming down. Urine electrolytes are non pre renal. Fractional excretion of urea is not low. CK is normal. Etiology of RAF is not entirely clear. However I suspect that this is related to her COVID, UTI and bacteremia. she was on diuretics and arb POA She is getting antibiotics. Her white count is slowly better. She feels better. CT of abdomen noted She is more hungry today. if she eats more today then we can probably stop the IVFs. continue ATBs. She has a an atypical renal cyst. She will need an MRI but this can wait until she is off isolation. (2) UTI (urinary tract infection): Code(s): N39.0 - Urinary tract infection, site not specified Status: Acute Assessment and Plan: as suggested by admission UA UA and one of two blood cultures pos for E coli. off Jardiance. wbc not coming down very quickly. Repeat UA today to be sure wbcs are clearing. do we need more investigation? the patient does feel much better. on Levaquin IV (3) Abdominal pain: Code(s): R10.9 - Unspecified abdominal pain Status: Acute Assessment and Plan: related to #1 (?) CT of abd/pelvis with no acute pathology supportive therapy She is in less pain today. (4) Hypertension: Code(s): I10 - Essential (primary) hypertension Status: Chronic Assessment and Plan: Systolic ranging from 130-150. She is on amlodipine. ARB on hold due to RAF (5) Diabetes: Code(s): E11.9 - Type 2 diabetes mellitus without complications Status: Chronic Assessment and Plan: On Accu-Cheks and sliding-scale insulin. off Jardiance (6) Hypokalemia: Code(s): E87.6 - Hypokalemia Status: Acute Plan K low today she is not on any diuretics and is on LR which contains some potassium. she received a supplement. Subjective Date/time seen: 04/08/22 08:44 Interval history: Mariza is feeling better today. her appetite is better She has a little bit of a cough. Exam Narrative: WDWN in NAD skin no rash or sq nodules head ncat lungs clear cor reg no rub or gallop abd BS+ nontender and soft ext no edema. Objective Data Vital Signs Vital Signs: Vital Signs - 24 hr 04/07/22 10:46 04/07/22 10:00 04/07/22 15:18 Temperature 98.1 F 98.4 F Pulse Rate 100 98 Respiratory Rate 16 16 Blood Pressure 144/88 H 125/73 Pulse Oximetry 97 97 Oxygen Delivery Room Air 04/07/22 18:49 04/07/22 22:21 04/08/22 02:14 Temperature 97.9 F 97.4 F L 97.4 F L Pulse Rate 100 99 87 Respiratory Rate 18 18 18 Blood Pressure 134/68 147/77 H 138/70 Pulse Oximetry 96 95 97 Oxygen Delivery 04/08/22 06:00 Temperature 97.5 F L Pulse Rate 98 Respiratory Rate 20 Blood Pressure 144/80 H Pulse Oximetry 98 Oxygen Delivery Intake/Output Intake/Output: Intake & Output 04/05/22 04/06/22 04/07/22 04/08/22 23:59 23:59 23:59 23:59 Intake Total 5360 5480 400 Output Total 2050 2250 1000 Balance 3310 3230 -600 Meds/Results Medications: Active Medications Generic Name Dose Route Start Last Admin Trade Name Daphnie PRN Reason Stop Dose Admin Amlodipine Besylate 10 mg 04/06/22 09:00 04/07/22 08:41 Amlodipine Besylate 5 Mg Tablet PO 10 mg DAILY [facility] Administration Atorvastatin Calcium 10 mg 04/06/22 09:00 04/07/22 08:41 Atorvastatin 10 Mg Tablet PO 10 mg CATRINA
[2022-04-08] MEDS: INSULIN ASPART (*BKC) 100 UNITS/ML SUB-Q ×3 (09:31→18:00)
[2022-04-08] MEDS: DULoxetine HCL 60 MG CAPSULE.DR 120 MG PO (09:37)
[2022-04-08] MEDS: EZETIMIBE 10 MG TABLET PO (09:38)
[2022-04-08] MEDS: BENZTROPINE MESYLATE 0.5 MG TABLET PO (09:39)
[2022-04-08] MEDS: ATORVASTATIN 10 MG TABLET PO (09:40)
[2022-04-08] MEDS: amLODIPine BESYLATE 5 MG TABLET 10 MG PO (09:40)
--- NOTE | 2022-04-08 11:07 | PM.IMPN ---
Progress Note: A&P Assessment and Plan (1) Acute kidney injury: Code(s): N17.9 - Acute kidney failure, unspecified Status: Acute Assessment and Plan: IV fluids Nephrology consult (2) UTI (urinary tract infection): Code(s): N39.0 - Urinary tract infection, site not specified Status: Acute Assessment and Plan: IV antibiotics (3) Abdominal pain: Code(s): R10.9 - Unspecified abdominal pain Status: Acute (4) Renal mass: Code(s): N28.89 - Other specified disorders of kidney and ureter Status: Acute Assessment and Plan: Will need follow-up imaging Subjective Date/time seen: 04/08/22 11:07 No new complaints Exam Narrative: General: alert and oriented Psych: appropriate mood nad affect Eyes: PERRLA Neck: Trachea midline, no new lesions Skin: no changes Lungs: CTA Cardiac: Normal S1,S2, no MGR ABD: soft, nd, nt, nbs Ext: no new lesions, no cce Vasc: Pulses intact Objective Data Vital Signs Vital Signs: Vital Signs - 24 hr 04/07/22 15:18 04/07/22 18:49 04/07/22 22:21 Temperature 98.4 F 97.9 F 97.4 F L Pulse Rate 98 100 99 Respiratory Rate 16 18 18 Blood Pressure 125/73 134/68 147/77 H Pulse Oximetry 97 96 95 04/08/22 02:14 04/08/22 06:00 04/08/22 10:52 Temperature 97.4 F L 97.5 F L 97.7 F Pulse Rate 87 98 96 Respiratory Rate 18 20 16 Blood Pressure 138/70 144/80 H 163/89 H Pulse Oximetry 97 98 98 Intake/Output Intake/Output: Intake & Output 04/05/22 04/06/22 04/07/22 04/08/22 23:59 23:59 23:59 23:59 Intake Total 5360 5480 520 Output Total 3134 5147 1000 Balance 3310 3230 -480 Meds/Results Medications: Active Medications Generic Name Dose Route Start Last Admin Trade Name Freq PRN Reason Stop Dose Admin Amlodipine Besylate 10 mg 04/06/22 09:00 04/08/22 09:40 Amlodipine Besylate 5 Mg Tablet PO 10 mg DAILY [facility] Administration Atorvastatin Calcium 10 mg 04/06/22 09:00 04/08/22 09:40 Atorvastatin 10 Mg Tablet PO 10 mg DAILY [facility] Administration Benztropine Mesylate 0.5 mg 04/06/22 09:00 04/08/22 09:39 Benztropine Mesylate 0.5 Mg Tablet PO 0.5 mg DAILY [facility] Administration Dextrose 12.5 gm 04/06/22 12:25 Dextrose 50% 25 Gm/50 Ml Syringe IV PUSH PRN PRN Hypoglycemia Protocol Duloxetine HCl 120 mg 04/06/22 09:00 04/08/22 09:37 Duloxetine Hcl 60 Mg Capsule.Dr PO 120 mg DAILY [facility] Administration Ezetimibe 10 mg 04/06/22 09:00 04/08/22 09:38 Ezetimibe 10 Mg Tablet PO 10 mg DAILY [facility] Administration Glucagon 1 mg 04/06/22 12:25 Glucagon For Inj 1 Mg Vial IM PRN PRN Hypoglycemia Protocol Glucose 15 gm 04/06/22 12:25 Glucose Oral Gel 15 Gm Of Glucse In 37.5 Gm Tube PO PRN PRN Hypoglycemia Protocol Hydroxyzine HCl 50 mg 04/06/22 08:43 Hydroxyzine Hcl 25 Mg Tablet PO QID PRN Anxiety Levofloxacin/Dextrose 750 mg in 150 mls @ 100 mls/hr 04/08/22 09:00 04/08/22 09:35 Levaquin 750 Mg/D5w 150 Ml IVPB 100 mls/hr Q48HR [facility] Administration Dextrose 1,000 mls @ 100 mls/hr 04/06/22 12:25 Dextrose 5% 1,000 Ml IVPB PRN PRN Hypoglycemia Protocol Lactated Ringer's 1,000 mls @ 75 mls/hr 04/07/22 11:30 04/07/22 21:05 Lr - Lactated Ringers Iv IV CONT 75 mls/hr .[id number] [facility] Administration Insulin Aspart 2 - 5 units 04/06/22 17:00 04/08/22 09:31 Insulin Aspart (*Bkc) 100 Units/Ml SUB-Q 2 units TIDWM [facility] Administration Protocol Levothyroxine Sodium 200 mcg 04/06/22 06:30 04/08/22 06:31 Levothyroxine Sodium 100 Mcg Tablet PO 200 mcg DAILY@0630 [facility] Administration Loperamide HCl 2 mg 04/06/22 16:37 04/06/22 21:21 Loperamide Hcl 2 Mg Capsule PO 2 mg PRN PRN Administration Diarrhea Simethicone 80 mg 04/06/22 16:37 04/06/22 16:56 Simethicone 80 Mg Tab.Chew PO 80 mg QID PRN Administration Gas Discomfort T
[2022-04-08 11:30] LABS: Appearance Urine Clear (Clear); Bilirubin Urine Negative (Negative); Blood Urine 2+ (Negative); Color Urine Yellow (Yellow); Glucose Urine UA 3+ mg/dL (Negative); Ketones Urine Negative (Negative); Leukocyte Esterase Ur 2+ LEU/UL (NEGATIVE); Nitrate Urine Negative (Negative); Protein Urine 1+ mg/dL (Negative); Urobilinogen Urine 0.2 mg/dL (<2.0); pH Urine 5.5 (5.0-9.0)
[2022-04-08 11:52] LABS: Glucose Point of Care 215 mg/dl (65-105)
[2022-04-08 12:31] LABS: Add Urine Microscopic? YES; Bacteria Urine Trace /hpf; Mucus Urine Rare /lpf; Squamous Epithelial Cell Urine Occasional /hpf (Few); WBC Clumps Urine Present /HPF; WBC Urine >75 /hpf (0-3)
[2022-04-08 17:34] LABS: Glucose Point of Care 203 mg/dl (65-105)
[2022-04-08] MEDS: TIZANIDINE HCL 4 MG TABLET PO (21:18)
[2022-04-08 21:47] LABS: Glucose Point of Care 240 mg/dl (65-105)
[2022-04-09] VITALS: BP 126/71; PULSE 84; RESP 16; TEMP 36.4; O2SAT 96
[2022-04-09 05:01] LABS: Basophils Absolute Auto 0.1 K/mm3 (0.0-0.1); Basophils Percent Auto 0.5 % (0.2-1.2); Eosinophils Absolute Auto 0.1 K/mm3 (0-0.3); Eosinophils Percent Auto 0.7 % (0-4.4); Hematocrit 29.9 % (37.0-47.0); Hemoglobin 9.8 g/dL (12.0-15.0); Immature Granulocyte Absolute 0.93 K/mm3 (0.00-0.031); Immature Granulocyte Percent A 5.7 % (0-0.5); Lymphocytes Absolute Auto 2.13 K/mm3 (0.9-3.2); Mean Corpuscular HGB Conc 32.8 g/dl (32-36); Mean Corpuscular Volume 85.4 fl (80-100); Mean Platelet Volume 8.6 fl (7.4-10.4); Monocytes Absolute Auto 0.6 K/mm3 (0.1-0.6); Monocytes Percent Auto 3.5 % (2.6-8.5); Neutrophils Absolute Auto 12.5 K/mm3 (1.3-6.7); Neutrophils Percent Auto 76.6 % (45.5-73.1); Platelet Count Result 438 k/mm3 (150-375); Red Cell Distribution Width 14.3 % (11.5-14.5); White Blood Count 16.4 K/mm3 (4.5-10.0)
[2022-04-09 05:21] LABS: Albumin Level 3.3 g/dL (3.5-5.1); Anion Gap 6 mmol/L (8-16); Blood Urea Nitrogen 40 mg/dL (7-17); Calcium 8.5 mg/dL (8.4-10.2); Carbon Dioxide 25 mmol/L (22-30); Chloride 104 mmol/L (98-107); Estimated CRCL calculation 33 ml/min; Estimated Glomerular Filt Rate 27; Glucose 239 mg/dL (65-110); Phosphorus 2.9 mg/dL (2.5-4.5); Potassium 3.4 mmol/L (3.4-5.0); Sodium 135 mmol/L (137-145)
[2022-04-09] MEDS: LEVOTHYROXINE SODIUM 100 MCG TABLET 200 MCG PO (05:30)
[2022-04-09 05:31] LABS: Atypical Lymphocytes Present; Platelet Estimate Increased (Adequate); Schistocytes None Seen (NORMAL)
[2022-04-09 06:00] VITALS: BP 143/77; PULSE 92; RESP 16; TEMP 36.5; O2SAT 98
[2022-04-09 08:28] LABS: Glucose Point of Care 214 mg/dl (65-105)
[2022-04-09] MEDS: INSULIN ASPART (*BKC) 100 UNITS/ML SUB-Q (09:32)
[2022-04-09] MEDS: BENZTROPINE MESYLATE 0.5 MG TABLET PO (09:32)
[2022-04-09] MEDS: amLODIPine BESYLATE 5 MG TABLET 10 MG PO (09:33)
[2022-04-09] MEDS: ATORVASTATIN 10 MG TABLET PO (09:33)
[2022-04-09] MEDS: EZETIMIBE 10 MG TABLET PO (09:33)
[2022-04-09] MEDS: DULoxetine HCL 60 MG CAPSULE.DR 120 MG PO (09:33)
--- NOTE | 2022-04-09 10:30 | PM.DS ---
DS: Admitting Diagnosis Discharge Date April 09, 2022 Admitting Diagnosis UTI and bacteremia DS: Discharge Diagnosis Discharge Diagnosis (1) Acute kidney injury: Code(s): N17.9 - Acute kidney failure, unspecified Status: Acute Assessment and Plan: IV fluids Nephrology consult (2) UTI (urinary tract infection): Code(s): N39.0 - Urinary tract infection, site not specified Status: Acute Assessment and Plan: IV antibiotics (3) Abdominal pain: Code(s): R10.9 - Unspecified abdominal pain Status: Acute (4) Renal mass: Code(s): N28.89 - Other specified disorders of kidney and ureter Status: Acute Assessment and Plan: Will need follow-up imaging DS: Summary Hospital Course Hospital Course: 56-year-old female came in with lower abdominal pain found have UTI. Grew E coli in her urine. She also grew E coli in her blood 1 of 2 bottles. Started on Levaquin IV Q 48hour dosing secondary to renal dysfunction. Patient does have known history of chronic kidney disease and she is unsure what her baseline creatinine is. She did have acute kidney injury when she came in the hospital creatinine was elevated but now her creatinine has stabilized at 1.9 improved. Will send her home on Q 48hour dosing of Levaquin for her UTI and bacteremia. Also noted atypical cyst of her kidney on the right. She is aware she will need to get an MRI of this as outpatient. I discussed this the patient in detail Time Spent with Patient Time attestation: Total time spent providing and/or coordinating discharge services: Exam Narrative: General: alert and oriented Psych: appropriate mood nad affect Eyes: PERRLA Neck: Trachea midline, no new lesions Skin: no changes Lungs: CTA Cardiac: Normal S1,S2, no MGR ABD: soft, nd, nt, nbs Ext: no new lesions, no cce Vasc: Pulses intact DS: Data Data Completed and Pending Labs on day of discharge: Labs from last 24 hours 04/09/22 04/09/22 04/09/22 08:21 04:38 04:38 WBC 16.4 H RBC 3.50 L Hgb 9.8 L Hct 29.9 L MCV 85.4 MCH 28.0 MCHC 32.8 RDW 14.3 Plt Count 438 H MPV 8.6 Immature Gran % (Auto) 5.7 H Neut % (Auto) 76.6 H Lymph % (Auto) 13.0 L [place] % (Auto) 3.5 Eos % (Auto) 0.7 Baso % (Auto) 0.5 Lymph # (Auto) 2.13 [place] # (Auto) 0.6 Eos # (Auto) 0.1 Baso # (Auto) 0.1 Abs Immat Gran (auto) 0.93 H Absolute Neuts (auto) 12.5 H Absolute Nucleated RBC 0.0 Nucleated RBC % 0.0 Atypical Lymphocytes Present Platelet Estimate Increased Schistocytes None seen Sodium 135 L Potassium 3.4 Chloride 104 Carbon Dioxide 25 Anion Gap 6 L BUN 40 H D Creatinine 1.90 H Estim Creat Clear Calc 33 Estimated GFR 27 L Glucose 239 H POC Capillary Glucose 214 H Calcium 8.5 Phosphorus 2.9 Albumin 3.3 L Urine Color Urine Appearance Urine pH Ur Specific [place] Urine Protein Urine Glucose (UA) Urine Ketones Ur Blood (Man) Urine Nitrate Urine Bilirubin Urine Urobilinogen Ur Leukocyte Esterase Urine RBC Urine WBC Urine WBC Clumps Ur Squamous Epith Cells Urine Bacteria Urine Mucus 04/08/22 04/08/22 04/08/22 21:08 17:27 11:49 WBC RBC Hgb Hct MCV MCH MCHC RDW Plt Count MPV Immature Gran % (Auto) Neut % (Auto) Lymph % (Auto) [place] % (Auto) Eos % (Auto) Baso % (Auto) Lymph # (Auto) [place] # (Auto) Eos # (Auto) Baso # (Auto) Abs Immat Gran (auto) Absolute Neuts (auto) Absolute Nucleated RBC Nucleated RBC % Atypical Lymphocytes Platelet Estimate Schistocytes Sodium Potassium Chloride Carbon Dioxide Anion Gap BUN Creatinine Estim Creat Clear Calc Estimated GFR Glucose POC Capillary Glucose 240 H 203 H 215 H Calcium Phosphorus
--- NOTE | 2022-04-09 12:42 | P.CDI_ITS ---
CDI Query Clarified Diagnosis Clarified Diagnosis: Documented positive COVID test on 04/06/22 Please clarify the status of the patient's COVID-19 infection, if known. * COVID-19 is a current/active infection * Current condition is a sequela of COVID-19 * Past history of COVID-19 * Other explanation of clinical findings (please specify) * Unable to determine
--- NOTE | 2022-04-09 12:42 | WPDCDIQUERY2 ---
CDI Query Clarified Diagnosis Clarified Diagnosis: Documented positive COVID test on 04/06/22 Please clarify the status of the patient's COVID-19 infection, if known. COVID-19 is a current/active infection Current condition is a sequela of COVID-19 Past history of COVID-19 Other explanation of clinical findings (please specify) Unable to determine
[2022-04-10 20:21] LABS: Kappa\\Lambda Light Chains 1.59 (0.26-1.65); Lambda Light Chain 42.6 mg/L (5.7-26.3)
[2022-04-11 15:49] LABS: Chloride Rand Ur 66 mmol/L (32-290); Chloride/Creatinine Rand Ur 300 (38-318); Creatinine Random Urine 22 mg/dL (20-275)
== END 2022-04-09 12:22 | disposition home or self-care (01) | DRG 682 ==
LOC: ANHED 04-06 04:09 → ANH2MED 04-06 05:43
PROVIDERS: Emergency Medicine; Internal Medicine Nephrology; Physician Assistant; Admitting Provider Internal Medicine; Emergency Provider Preventive Medicine Aerospace Medicine; Visit Provider Chiropractor
DX: N17.9 Acute kidney failure, unspecified (principal); U07.1 COVID-19; N39.0 Urinary tract infection, site not specified; B96.20 Unspecified Escherichia coli [E. coli] as the cause of diseases classified elsewhere; E11.22 Type 2 diabetes mellitus with diabetic chronic kidney disease; E87.6 Hypokalemia; I12.9 Hypertensive chronic kidney disease with stage 1 through stage 4 chronic kidney disease, or unspecified chronic kidney disease; N28.1 Cyst of kidney, acquired; N20.0 Calculus of kidney; N18.9 Chronic kidney disease, unspecified; Z90.49 Acquired absence of other specified parts of digestive tract; Z79.84 Long term (current) use of oral hypoglycemic drugs; Z88.0 Allergy status to penicillin; Z87.891 Personal history of nicotine dependence
CPT/HCPCS: 36415; 71046; 74176; 76775; 80048; 80053; 80069; 81001; 81025; 81050; 82010; 82040; 82436; 82533; 82550; 82570; 82728; 82803; 82948; 83605; 83615; 83690; 83735; 83883; 84100; 84145; 84156; 84300; 84439; 84443; 84480; 84484; 84540; 85025; 85027; 85999; 86140; 87040; 87077; 87086; 87088; 87186; 87493; 87636; 93005; 96361; 96365; 96366; 96367; 96368; 96375; 99285; A9270; G0378; J0780; J1815; J1956; J3480; J7030; J7040; J7120